=== PATIENT | male | born 2000 | race Caucasian/White ===

== ENCOUNTER 2023-03-01 20:26 | Emergency (ER) | payer MEDICAID, SELFPAY ==
[2023-03-01 20:38] VITALS: BP 127/83; PULSE 91; RESP 14; TEMP 36.9; O2SAT 99
--- NOTE | 2023-03-01 21:10 | W.ED.URI ---
HPI - URI/Sore Throat General: Chief Complaint: Ear Stated Complaint: Sore Throat\Throat Bleeding Time Seen by Provider: 03/01/23 20:46 History of Present Illness: Patient is a 22-year-old male who comes to the ED with sore throat. Symptoms started 3 days ago. He reports having a very painful sore throat, nasal drainage and congestion and some right ear pain. Patient says it is hard for him to eat because his sore throat is so painful. He reports having a fever yesterday. Denies any cough, nausea/vomiting, abdominal pain, bladder or bowel symptoms. Patient states he has been taking an old amoxicillin prescription for the past 2 days. Denies any known sick contacts. Associated symptoms: Reports ear or mastoid pain (Right ear pain), fever(s) and nasal congestion; Deny abdominal pain, chills, chest pain, diarrhea, headache(s), nausea or vomiting Review of Systems Const: Reports: fever(s); Denies: chills or fatigue Eyes: Denies: change in vision or eye discomfort ENMT: Reports: throat pain, odynophagia, ear or mastoid pain (Right ear pain), nasal discharge and nasal congestion Card: Denies: chest pain, palpitations, edema, swelling of feet/ankles, dyspnea on exertion or orthopnea Resp: Denies: dyspnea, productive cough or non-productive cough GI: Denies: abdominal pain, nausea, vomiting, diarrhea, constipation or hematochezia : Denies: flank pain, difficulty urinating, dysuria or hematuria Musc: Denies: neck pain, back pain or extremity swelling Skin/Breast: Denies: rash or new lesions Neuro: Denies: headache(s), numbness in extremities or weakness in extremities [facility] ED PFSH: Medical History (Updated 03/01/23 @ 22:01 by BRAYDEN Ordaz) Generalized anxiety disorder Right clavicle fracture Surgical History (Updated 09/29/19 @ 10:37 by Molly Wallace MD) No pertinent past surgical history Family History (Updated 09/29/19 @ 10:18 by Fina Godinez RN) Other Diabetes Denies family history of Hyperlipidemia Hypertension Social History Smoking and tobacco status: former smoker Alcohol intake: never Substance/Drug Use: never Physical Exam Const: COMMON NORMALS: patient oriented x3 HENMT: COMMON NORMALS: normocephalic HEAD & SCALP: normocephalic MOUTH: Normal oral and palatal mucosa present, lip normal and tongue normal THROAT: uvula midline, abnormal tonsil bilateral erythema, exudates and hypertrophy 2+ and posterior oropharynx abnormal erythema and exudates Neck/C-Spine: COMMON NORMALS: supple GENERAL: Yes normal visual inspection Resp: COMMON NORMALS: normal respiratory effort, No retractions, No use of accessory muscles and clear to auscultation bilaterally AUSCULTATION: clear to auscultation bilaterally Cardio: COMMON NORMALS: regular rate, regular rhythm, S1 normal heart sound present, S2 normal heart sound present, No gallops present (Cardio), No clicks present (Cardio), No murmurs present (Cardio) and Peripheral pulses 2+ throughout RATE: regular rate RHYTHM: regular rhythm HEART SOUNDS: S1 normal heart sound present and S2 normal heart sound present PERIPHERAL PULSES: Peripheral pulses 2+ throughout GI: COMMON NORMALS: Normal to inspection, nondistended, normoactive bowel sounds present, Soft to palpation, non-tender and no masses PALPATION: Yes Soft to palpation : COMMON NORMALS: Yes no CVA tenderness BLADDER/KIDNEY EXAM: Yes no CVA tenderness Back/Pelvis: COMMON NORMALS: no CVA tenderness Extremity: COMMON NORMALS: normal to inspection Neuro: COMMON NORMALS: patient oriented x3 GAIT: Yes Normal gait present Skin: GENERAL SKIN EXAM: dry skin Course Vital Signs: Vital signs: Vital Signs Temperature 98.4 F 03/01/23 20:38 Pulse Rate 91 03/01/23 20:38 Respiratory Rate 14 03/01/23 20:38 Blood Pressure 127/83 03/01/23 20:38 Pulse Oximetry 99 03/01/23 20:38 Oxygen Delivery Me thod Room Air 03/01/23 20:38 MDM - URI/Sore Throat Medical Decision Making Patient is a 22-year-old male who comes to the ED with sore throat. Symptoms started 3 days ago. He reports having a very painful sore throat, nasal drainage and congestion and some right ear pain. Patient says it is hard for him to eat because his sore throat is so painful. He reports having a fever yesterday. Denies any cough, nausea/vomiting, abdominal pain, bladder or bowel symptoms. Patient states he has been taking an old amoxicillin prescription for the past 2 days. Denies any known sick contacts. Vitals are stable. Exam of patient shows posterior oropharynx erythema and exudates along with bilateral tonsil erythema and exudates and hypertrophy of 2+. Rest of exam is benign. Strep was negative. Given patient's exam findings i am treating him for strep. He was given a dose of Decadron and Augmentin while here in the ED. He was stable for discharge home and sent home with prescription for Augmentin. Told to follow-up with PCP in the next week for reevaluation. Return to ED precautions given. Patient understood and agreed with plan. Lab Data I reviewed the patient's lab results. Laboratory Results Group A Strep Rapid Negative (Negative) 03/01/23 21:16 Discharge Plan Discharge Patient Disposition: Home Clinical Impression: Pharyngitis Qualifiers: Pharyngitis/tonsillitis etiology: unspecified etiology Qualified Code(s): J02.9 - Acute pharyngitis, unspecified Condition: Stable Prescriptions: New amoxicillin-pot clavulanate 500-125 mg tablet 1 tab PO BID 10 Days Qty: 20 0RF Discharge Orders: Discharge ED (Routine); Ordered 03/01/23 Ordered By: Zacarias Hernadez Discharge Diet: Regular Discharge Activity: Increase activity as tolerated Patient Instructions: Pharyngitis (ED) Activity Restrictions/Additional Instructions: Follow-up with medical provider as directed in the next 5 to 7 days for reevaluation. Take medications as prescribed. Return to the ER or your medical provider if condition worsens. Please read and understand discharge instructions. Thank you for choosing [facility] for your healthcare needs today. Please realize this is an emergency room and that we are providing you with a medical screening exam and this may not be complete and all inclusive of all the testing and or work up that you may need to determine your ailment or severity of your illness. It is very important that you follow up as instructed or that you return to the Emergency Department should you have concerns or if your condition changes or worsens in any way. Coding Level of Care Code ED Solar Energy Advisor for Ashleigh Beltran
[2023-03-01] MEDS: dexamethasone 10 mg/mL INJ IM (21:18)
[2023-03-01] MEDS: amoxicillin-clav 500-125 mg Tablet 1 TAB PO (21:18)
[2023-03-01 21:59] LABS: Rapid Strep A Test Negative (Negative)
[2023-03-01 22:28] VITALS: RESP 16
--- NOTE | 2023-03-05 13:32 | DCPLANNER ---
railroad emergency services manager called patient due to no primary care physician - no answer at this time.
== END 2023-03-01 22:31 | disposition home or self-care (01) ==
PROVIDERS: Emergency Provider Physician Assistant
DX: J02.9 Acute pharyngitis, unspecified (principal); Z87.891 Personal history of nicotine dependence
CPT/HCPCS: 87081; 87880; 96372; 99284; J1100

== ENCOUNTER 2023-10-29 16:59 | Inpatient (IN) | payer MEDICAID, SELFPAY ==
[2023-10-29 17:04] VITALS: BP 154/116; PULSE 84; RESP 18; TEMP 36.4; O2SAT 99
--- NOTE | 2023-10-29 17:17 | W.ED.PSYCHS ---
HPI - Psych General: Chief Complaint: Psychiatric Symptoms Stated Complaint: anxiety Time Seen by Provider: 10/29/23 17:10 Source: patient Mode of arrival: ambulatory Limitations: no limitations History of Present Illness: 23-year-old male here with severe anxiety states that he has had multiple panic attacks here he is shaking in the room and appears extremely anxious states that history of anxiety depression he just restarted sertraline with states he is feeling worse as he is taken at the last 2 days he started back at his old dose of 150 mg he had some passing suicidal thoughts denies any active plans he has had depression. Review of Systems Const: Denies: fever(s), chills, body aches or change in appetite ENMT: Denies: throat pain or dental pain Card: Denies: chest pain Resp: Denies: dyspnea GI: Denies: abdominal pain, nausea, vomiting or diarrhea Musc: Denies: neck pain or back pain Skin/Breast: Denies: rash Neuro: Denies: headache(s) Psych: Reports: anxiety [facility] ED PFSH: Medical History Right clavicle fracture Generalized anxiety disorder Surgical History No pertinent past surgical history Family History (Updated 09/29/19 @ 10:18 by Fina Godinez RN) Other Diabetes Denies family history of Hyperlipidemia Hypertension Social History Smoking and tobacco/nicotine status: former use of tobacco/nicotine Alcohol intake: never Substance/Drug Use: never Physical Exam Const: COMMON NORMALS: patient oriented x3 and healthy appearing GENERAL APPEARANCE: anxious HENMT: COMMON NORMALS: normocephalic and atraumatic HEAD & SCALP: normocephalic and atraumatic Neck/C-Spine: COMMON NORMALS: full ROM Chest: COMMONS NORMALS: normal inspection of the chest Resp: COMMON NORMALS: normal respiratory effort Cardio: COMMON NORMALS: regular rate, regular rhythm and No murmurs present (Cardio) RATE: regular rate RHYTHM: regular rhythm Extremity: COMMON NORMALS: normal to inspection and full ROM Neuro: COMMON NORMALS: patient oriented x3, moves all extremities and no focal motor deficits Psych: COMMON NORMALS: mental status grossly normal, Normal thought process present and cooperative MOOD & AFFECT: Yes depressed mood THOUGHT PROCESS: Normal thought process present OTHER: anxious Skin: COMMON NORMALS: no rashes or lesions noted and no wounds GENERAL SKIN EXAM: no rashes or lesions noted Course Vital Signs: Vital signs: Vital Signs Temperature 97.6 F 10/29/23 17:04 Pulse Rate 84 10/29/23 17:04 Respiratory Rate 18 10/29/23 17:04 Blood Pressure 154/116 10/29/23 17:04 Pulse Oximetry 99 10/29/23 17:04 Oxygen Delivery Me thod Room Air 10/29/23 17:04 MDM - Psych Medical Decision Making Patient presents here with severe anxiety along with depression patient voluntarily want to be admitted here he has no active suicidal thoughts but he does have severe anxiety depression and would benefit from admission he is medically cleared spoke to Dr. Wallace and will admit at this time Medical Records I reviewed the patient's medical records. Lab Data I reviewed the patient's lab results. 10/29/23 18:08 10/29/23 18:08 Laboratory Results WBC 11.57 10^3/uL (3.29-11.43) H 10/29/23 18:08 RBC 5.37 10^6/uL (3.85-5.65) 10/29/23 18:08 Hgb 15.80 g/dL (11.27-16.99) 10/29/23 18:08 Hct 44.7 % (37-53) 10/29/23 18:08 MCV 83.2 fl (82-101) 10/29/23 18:08 MCH 29.4 pg (27-33) 10/29/23 18:08 MCHC 35.3 g/dL (30-55) 10/29/23 18:08 RDW 12.2 % (12.1-15.1) 10/29/23 18:08 Plt Count 243 10^3/cmm (157-399) 10/29/23 18:08 MPV 10.9 fL (7.4-10.4) H 10/29/23 18:08 Neut % (Auto) 69.3 % 10/29/23 18:08 Lymph % (Auto) 20.4 % 10/29/23 18:08 [place] % (Auto) 9.3 % 10/29/23 18:08 Eos % (Auto) 0.1 % 10/29/23 18:08 Baso % (Auto) 0.5 % 10/29/23 18:08 Neut # (Auto) 8.01 10^3/uL (1.8-7.7) H 10/29/23 18:08 Lymph # (Auto) 2.4 10^3/uL (0.8-4.8) 10/29/23 18:08 [place] # (Auto) 1.1 10^3/uL (0.2-0.9) H 10/29/23 18:08 Eos # (Auto) 0.0 10^3/uL (0.0-0.8) 10/29/23 18:08 Baso # (Auto) 0.1 10^3/uL (0.0-0.1) 10/29/23 18:08 Nucleated RBC % (auto) 0 % 10/29/23 18:08 Nucleated RBCs # 0.0 /100WBC 10/29/23 18:08 Sodium 140 mmol/L (136-145) 10/29/23 18:08 Potassium 3.5 mmol/L (3.5-5.1) 10/29/23 18:08 Chloride 101 mmol/L (98-107) 10/29/23 18:08 Carbon Dioxide 26 mmol/L (22-29) 10/29/23 18:08 Anion Gap 16.5 (5-19) 10/29/23 18:08 BUN 11 mg/dL (6-20) 10/29/23 18:08 Creatinine 0.9 mg/dL (0.7-1.2) 10/29/23 18:08 GFR Calculation 106.5 mL/min (90-130) 10/29/23 18:08 Glucose 116 mg/dL (65-115) H 10/29/23 18:08 Calculated Osmolality 290 mOsm/kg (285-295) 10/29/23 18:08 Calcium 9.3 mg/dL (8.5-10.5) 10/29/23 18:08 Total Bilirubin 1.0 mg/dL (0.15-1.2) 10/29/23 18:08 AST 13 U/L (0-40) 10/29/23 18:08 ALT 13 U/L (0-41) 10/29/23 18:08 Alkaline Phosphatase 75 U/L (40-130) 10/29/23 18:08 Total Protein 7.3 g/dL (6.6-8.7) 10/29/23 18:08 Albumin 4.8 g/dL (3.5-5.2) 10/29/23 18:08 Globulin 2.5 g/dL (1.3-4.6) 10/29/23 18:08 Salicylates < 0.3 mg/dL (3-10) L 10/29/23 18:08 Urine Opiates Screen Negative ng/mL (Negative) 10/29/23 17:27 Acetaminophen < 5.0 ug/mL (10-30) L 10/29/23 18:08 Ur Barbiturates Screen Negative ng/mL (Negative) 10/29/23 17:27 Ur Phencyclidine Scrn Negative ng/mL (Negative) 10/29/23 17:27 Ur Amphetamines Screen Negative ng/mL (Negative) 10/29/23 17:27 U Benzodiazepines Scrn Negative ng/mL (Negative) 10/29/23 17:27 Urine Cocaine Screen Negative ng/mL (Negative) 10/29/23 17:27 U Marijuana (THC) Screen Positive ng/mL (Negative) H 10/29/23 17:27 Ethyl Alcohol < 10 mg/dL (0-10) 10/29/23 18:08 No radiology studies performed this visit Discharge Plan Discharge Patient Disposition: Admitted As Inpatient Admit Provider: Andreas Wallace Clinical Impression: Depression, Acute anxiety Condition: Stable Coding Level of Care Code ED Professional Programmer Analyst for Ashleigh Beltran
[2023-10-29] MEDS: LORazepam 1 mg Tablet 2 MG PO (17:26)
[2023-10-29 18:02] LABS: Amphetamines Screen Urine Negative (Negative); Barbiturates Screen Urine Negative (Negative); Benzodiazepines Screen Urine Negative (Negative); Cocaine Screen Urine Negative (Negative); Opiate Screen Urine Negative (Negative); PCP Screen Urine Negative (Negative); THC Screen Urine Positive (Negative)
[2023-10-29 18:21] LABS: Basophils # 0.1 10^3/uL (0.0-0.1); Basophils % 0.5 %; Eosinophils % 0.1 %; Hematocrit 44.7 % (37-53); Lymphocytes # 2.4 10^3/uL (0.8-4.8); Lymphocytes % 20.4 %; Mean Corpuscular HGB Conc 35.3 g/dL (30-55); Mean Corpuscular Hemoglobin 29.4 pg (27-33); Mean Corpuscular Volume 83.2 fl (82-101); Mean Platelet Volume 10.9 fL (7.4-10.4); Monocytes # 1.1 10^3/uL (0.2-0.9); Monocytes % 9.3 %; Neutrophils # 8.01 10^3/uL (1.8-7.7); Neutrophils % 69.3 %; Nucleated Red Blood Cells % 0 %; Platelet Count 243 10^3/cmm (157-399); Red Blood Count 5.37 10^6/uL (3.85-5.65); Red Cell Distribution Width 12.2 % (12.1-15.1); White Blood Count 11.57 10^3/uL (3.29-11.43)
[2023-10-29 18:43] LABS: Alanine Aminotransferase 13 U/L (0-41); Albumin Level 4.8 g/dL (3.5-5.2); Alkaline Phosphatase 75 U/L (40-130); Anion Gap 16.5 (5-19); Aspartate Amino Transferase 13 U/L (0-40); Blood Urea Nitrogen 11 mg/dL (6-20); Calcium 9.3 mg/dL (8.5-10.5); Carbon Dioxide 26 mmol/L (22-29); Chloride 101 mmol/L (98-107); Globulin 2.5 g/dL (1.3-4.6); Glomerular Filtration Rate 106.5 mL/min (90-130); Glucose 116 mg/dL (65-115); Osmolality Calculated 290 mOsm/kg (285-295); Potassium 3.5 mmol/L (3.5-5.1); Sodium 140 mmol/L (136-145); Total Protein 7.3 g/dL (6.6-8.7)
[2023-10-29 18:53] LABS: Acetaminophen < 5.0 ug/mL (10-30); Alcohol Level < 10 mg/dL (0-10); Salicylate < 0.3 mg/dL (3-10)
--- NOTE | 2023-10-29 20:05 | PC.NURSE ---
Report called to DOMINGUEZ Martínez in NPU.
[2023-10-29 20:23] VITALS: BP 141/98; PULSE 103; RESP 105; TEMP 36.4; O2SAT 98
[2023-10-29] MEDS: flu vacc pf 2023-24 (6 mos+) 60 MCG IM (20:59)
--- NOTE | 2023-10-29 21:12 | PC.ADMIT ---
[address] Admission Note: The patient,Chris Brewer,23 y/o, was given written information regarding hospital policies, unit procedures and contact persons. Patient's smoking status: former smoker.VAPES DAILY Vital Signs - 8 hr 10/29/23 17:04 10/29/23 20:23 10/29/23 21:01 Temperature 97.6 F 97.5 F L Pulse Rate 84 103 H Respiratory Rate 18 105 H Blood Pressure 154/116 141/98 Pulse Oximetry 99 98 Oxygen Delivery Method Room Air Room Air Room Air ADMITTED FROM ER VIA WHEELCHAIR AND STAFF AT 2022. PT IS VOLUNTARY AT THIS TIME. WHEN ASKED WHY HE CAME INTO TONIGHT PT STATED RESULTS, THEN WOULD NOT GIVE ANY OTHER INFORMATION. DENIES SI/HI AND AVH AT THIS TIME. REPORTS HE HAD BEEN TAKING ZOLOFT 150 MG BUT STATES HE IS NOT SURE IT IS WORKING. REPORTS A SUICIDE ATTEMPT IN 2021 BUT WOULD NOT STATE WHAT THE METHOD WAS. PT APPEARS TO HAVE FLAT AFFECT AND DEPRESSED AND ANXIOUS MOOD. DENIES PAIN. HAS NKDA. PT REPORTS HE DRINKS WEEKLY ABOUT A SIX PACK AND SMOKED MARJIJAUNA DAILY THE LAST TIME BEING TODAY. PT WAS ORIENTATED TO UNIT RULES AND GUIDELINES. ALL QUESTIONS WERE ANSWERED AND SUPPORT WAS VOICED.
[2023-10-30 06:00] VITALS: BP 133/71; PULSE 88; RESP 17; TEMP 36.6; O2SAT 97
[2023-10-30] MEDS: nicotine 2 mg Gum BUCCAL ×5 (08:33→21:59)
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
[2023-10-30 14:00] VITALS: BP 143/83; PULSE 68; RESP 18; TEMP 36.9; O2SAT 96
[2023-10-30] MEDS: fluoxetine 20 mg Capsule PO (19:51)
[2023-10-30 21:28] VITALS: BP 150/99; PULSE 81; RESP 20; TEMP 36.9; O2SAT 96
[2023-10-31 06:00] VITALS: BP 135/78; PULSE 89; RESP 16; TEMP 36.5; O2SAT 99
[2023-10-31] MEDS: fluoxetine 20 mg Capsule PO (08:55)
[2023-10-31] MEDS: nicotine 2 mg Gum BUCCAL (09:12)
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
[2023-10-31 10:53] VITALS: BP 135/78; PULSE 89; RESP 16; TEMP 36.5; O2SAT 99
== END 2023-10-31 13:58 | disposition home or self-care (01) | DRG 885 ==
LOC: ER 17:23 → NP 18:43
PROVIDERS: Admitting Provider Psychiatry & Neurology Psychiatry; Emergency Provider Emergency Medicine; Visit Provider Psychiatry & Neurology Psychiatry
DX: F33.9 Major depressive disorder, recurrent, unspecified (principal); F41.1 Generalized anxiety disorder; F41.0 Panic disorder [episodic paroxysmal anxiety]; Z87.891 Personal history of nicotine dependence; F42.9 Obsessive-compulsive disorder, unspecified; F43.10 Post-traumatic stress disorder, unspecified; F12.10 Cannabis abuse, uncomplicated; Z81.8 Family history of other mental and behavioral disorders; Z81.3 Family history of other psychoactive substance abuse and dependence; Z91.52 Personal history of nonsuicidal self-harm
CPT/HCPCS: 36415; 80053; 80306; 80307; 85025; 90471; 90686; 97150; 97165; 99285